=== PATIENT | male | born 1950 | race Hispanic/Latino ===

== ENCOUNTER 2018-03-27 18:27 | Emergency (ER) | payer OTHER ==
[2018-03-27 19:40] LABS: Absolute Lymphocytes (CBC) 0.7 K/uL (0.7-4.9); Absolute Monocytes 0.7 K/uL (0.1-1.3); Absolute Neutrophil 8.9 K/uL (1.8-8.0); Basophils % 0.4 % (0-1.3); Hematocrit 47.6 % (39.6-49.0); MCH 30.7 pg (27.0-35.0); MCV 89.3 fL (80-100); MPV 9.1 fL (7.6-11.3); Monocytes % 6.7 % (3.3-12.3); RBC Red Blood Cell Count 5.34 M/uL (4.33-5.43)
[2018-03-27] MEDS ORDERED: NA CHLORIDE 0.9% 1,000 ML ONE (19:44)
[2018-03-27] MEDS ORDERED: KETOROLAC 30 MG/ML INJ ONE (19:44)
[2018-03-27] MEDS ORDERED: ONDANSETRON 4 MG/2 ML VIAL ONE (19:44)
[2018-03-27 19:56] LABS: Albumin 3.5 g/dL (3.4-5.0); Bilirubin Direct 0.6 mg/dL (0-0.2); Bilirubin Total 1.5 mg/dL (0.2-1.0); Potassium 3.5 mmol/L (3.5-5.1); Protein, Total 7.3 g/dL (6.4-8.2)
[2018-03-27] MEDS ORDERED: ACETAMINOPHEN 500 MG TAB ONE (20:11)
--- NOTE | 2018-03-27 20:51 | RAD REPORT ---
EXAM DESCRIPTION: Stephanie Miller (2 Views)03/27/2018 7:51 pm CLINICAL HISTORY: Cough COMPARISON: None FINDINGS: The lungs appear clear of acute infiltrate. The heart is normal size IMPRESSION: No acute abnormalities displayed
[2018-03-27 21:36] LABS: Urine White Blood Cell Casts OK
[2018-03-27 21:37] LABS: Blood Morphology Comment NOT SEEN (NOT SEEN); Platelet Estimate DECR
--- NOTE | 2018-03-27 21:52 | ER ---
Nurse's Notes [facility] Name: Jeancarlos Tyler Age: 67 yrs Sex: Male : 1950 Arrival Date: 03/27/2018 Time: 18:32 Bed 25 Private MD: out of town, doctor Diagnosis: Abnormal results of liver function studies;Gastritis and duodenitis Presentation: 03/27 18:50 Presenting complaint: Patient states: Today at lunch he started feel bad, have chills. aj1 Denies cough. Reports he threw up yesterday but has not thrown up since. Denies pain. Denies nasal congestion. Denies urinary symptoms. Transition of care: patient was not received from another setting of care. Onset of symptoms was March 27, 2018 at 12:00. Risk Assessment: Do you want to hurt yourself or someone else? Patient reports no desire to harm self or others. Initial Sepsis Screen: Does the patient meet any 2 criteria? Temp <36.0*C (96.8*F)) or > 38.3*C (100.9*F). HR > 90 bpm. Does the patient have a suspected source of infection? No. Patient's initial sepsis screen is negative. Care prior to arrival: None. 18:50 Method Of Arrival: Ambulatory aj1 18:50 Acuity: RANDOLPH 2 aj1 Triage Assessment: 18:55 General: Appears in no apparent distress. uncomfortable, Behavior is calm, cooperative, aj1 appropriate for age. Pain: Denies pain. EENT: Denies nasal congestion, nasal discharge. Neuro: Level of Consciousness is awake, alert, obeys commands. Cardiovascular: Denies chest pain. Respiratory: Airway is patent Respiratory effort is even, unlabored, Respiratory pattern is regular, symmetrical, Denies shortness of breath. Historical: - Allergies: 18:55 No Known Allergies; aj1 - Home Meds: 18:55 None [Active]; aj1 - PMHx: 18:55 None; aj1 - PSHx: 18:55 None; aj1 - Immunization history:: Flu vaccine is not up to date. - Social history:: Smoking status: Patient/guardian denies using tobacco, Patient/guardian denies using alcohol, street drugs, The patient lives with family. - Ebola Screening: : Patient denies travel to an Ebola-affected area in the 21 days before illness onset. - Family history:: not pertinent. Screenin:50 Abuse screen: Denies threats or abuse. Denies injuries from another. Nutritional rv screening: No deficits noted. Tuberculosis screening: No symptoms or risk factors identified. Fall Risk None identified. Assessment: 19:49 General: Appears in no apparent distress. comfortable, Behavior is calm, cooperative. rv Pain: Denies pain. Neuro: Level of Consciousness is awake, alert, obeys commands, Oriented to person, place, time, situation. Cardiovascular: Capillary refill < 3 seconds. Respiratory: Airway is patent. GI: No signs and/or symptoms were reported involving the gastrointestinal system. : No signs and/or symptoms were reported regarding the genitourinary system. EENT: No signs and/or symptoms were reported regarding the EENT system. Derm: Skin is intact. Musculoskeletal: No signs and/or symptoms reported regarding the musculoskeletal system. 20:20 Reassessment: Patient appears in no apparent distress at this time. rv Vital Signs: 18:55 BP 161 / 71; Pulse 129; Resp 22; Temp 103.4; Pulse Ox 95% on R/A; Weight 78.02 kg (R); aj1 Height 5 ft. 5 in. (165.10 cm) (R); Pain 0/10; 20:16 BP 121 / 67; Pulse 106; Resp 14; Temp 102.6; Pulse Ox 95% ; rv 21:09 BP 117 / 66; Pulse 92 MON; Resp 17 S; Temp 99.1(O); Pulse Ox 95% on R/A; rv 21:54 BP 118 / 65 RA; Pulse 87 MON; Resp 16 S; Pulse Ox 96% on R/A; rv 18:55 Body Mass Index 28.62 (78.02 kg, 165.10 cm) aj1 ED Course: 18:32 Patient arrived in ED. sb2 18:33 out of town, doctor is Private Physician. sb2 18:55 Triage completed. aj1 18:55 Arm band placed on Patient placed in an exam room. aj1 19:08 Albino Rojo MD is Attending Physician. ma2 19:30 Initial lab(s) drawn, by me, sent to lab. Flu and/or RSV swab sent to lab. Inserted rv saline lock: 20 gauge in left antecubital area, using aseptic technique. Blood collected. 19:48 Chest Pa And Lat (2 Views) XRAY Sent. rv 19:49 Chest Pa And Lat (2 Views) XRAY In Process Unspecified. EDMS 19:49 Influenza Screen (a \T\ B) Sent. rv 19:49 Basic Metabolic Panel Sent. rv 19:49 CBC with Diff Sent. rv 19:49 Creatinine for Radiology Sent. rv 19:49 Hepatic Function Sent. rv 19:49 Lipase Sent. rv 19:50 Patient has correct armband on for positive identification. Placed in gown. Bed in low rv position. Call light in reach. Side rails up X 1. Adult w/ patient. bus monitor on. Pulse ox on. NIBP on. 21:54 No provider procedures requiring assistance completed. IV discontinued, bleeding rv controlled, No redness/swelling at site. Pressure dressing applied. Administered Medications: 19:30 Drug: NS 0.9% 1000 ml Route: IV; Rate: 1 bolus; Site: left antecubital; rv 21:28 Follow up: IV Status: Completed infusion rv 19:30 Drug: TORadol 30 mg Route: IVP; Site: left antecubital; rv 21:28 Follow up: Response: Pain is decreased rv 19:30 Drug: Zofran 4 mg Route: IVP; Site: left antecubital; rv 21:28 Follow up: Response: Nausea is decreased rv 20:03 Drug: Tylenol 1000 mg Route: PO; rv 21:27 Follow up: Response: Temperature is decreased rv Outcome: 21:51 Discharge ordered by . ma2 21:55 Discharged to home ambulatory. rv 21:55 Condition: good 22:06 Discharge instructions given to patient, Instructed on discharge instructions, follow rv up and referral plans. medication usage, Demonstrated understanding of instructions, follow-up care, medications, Prescriptions given X 2. 22:06 Patient left the ED. rv Signatures: Dispatcher [employer] KIRAMS Andria Kirby, RN RN preeti1 Albino Rojo MD MD ma2 Leda Horta sb2 Antelmo Vela RN RN rv
--- NOTE | 2018-03-27 21:52 | EDPHYS ---
Physician Documentation [facility] Name: Jeancarlos Tyler Age: 67 yrs Sex: Male : 1950 Arrival Date: 03/27/2018 Time: 18:32 Bed 25 Private MD: out of town, doctor ED Physician Albino Rojo HPI: 03/27 19:16 This 67 yrs old Male presents to ER via Ambulatory with complaints of Flu ma2 Symptoms. 19:16 The patient presents to the emergency department with nausea, vomiting. Possible ma2 causes: unknown. Associated signs and symptoms: Pertinent positives: fever, Pertinent negatives: abdominal pain, dysuria, hematuria, nausea, vomiting. Severity of symptoms: At their worst the symptoms were moderate in the emergency department the symptoms are unchanged. The patient has experienced similar episodes in the past. 19:16 Onset: The symptoms/episode began/occurred gradually, 1 day(s) ago. ma2 Historical: - Allergies: 18:55 No Known Allergies; aj1 - Home Meds: 18:55 None [Active]; aj1 - PMHx: 18:55 None; aj1 - PSHx: 18:55 None; aj1 - Immunization history:: Flu vaccine is not up to date. - Social history:: Smoking status: Patient/guardian denies using tobacco, Patient/guardian denies using alcohol, street drugs, The patient lives with family. - Ebola Screening: : Patient denies travel to an Ebola-affected area in the 21 days before illness onset. - Family history:: not pertinent. ROS: 19:16 Eyes: Negative for injury, pain, redness, and discharge, Cardiovascular: Negative for ma2 chest pain, palpitations, and edema, Respiratory: Negative for shortness of breath, cough, wheezing, and pleuritic chest pain, Abdomen/GI: Negative for abdominal pain, nausea, diarrhea, and constipation. 19:16 Constitutional: Positive for chills, fever, Negative for body aches, fatigue, poor PO intake, weight loss. 19:16 All other systems are negative. Exam: 19:16 Constitutional: This is a well developed, well nourished patient who is awake, alert, ma2 and in no acute distress. Neck: Trachea midline, no thyromegaly or masses palpated, and no cervical lymphadenopathy. Supple, full range of motion without nuchal rigidity, or vertebral point tenderness. No Meningismus. Chest/axilla: Normal chest wall appearance and motion. Nontender with no deformity. No lesions are appreciated. 19:16 Respiratory: Lungs have equal breath sounds bilaterally, clear to auscultation and percussion. No rales, rhonchi or wheezes noted. No increased work of breathing, no retractions or nasal flaring. Abdomen/GI: Soft, non-tender, with normal bowel sounds. No distension or tympany. No guarding or rebound. No evidence of tenderness throughout. Back: No spinal tenderness. No costovertebral tenderness. Full range of motion. Skin: Warm, dry with normal turgor. Normal color with no rashes, no lesions, and no evidence of cellulitis. MS/ Extremity: Pulses equal, no cyanosis. Neurovascular intact. Full, normal range of motion. Neuro: Awake and alert, GCS 15, oriented to person, place, time, and situation. Cranial nerves II-XII grossly intact. Motor strength 5/5 in all extremities. Sensory grossly intact. Cerebellar exam normal. Normal gait. 19:16 Cardiovascular: Rate: tachycardic. Vital Signs: 18:55 BP 161 / 71; Pulse 129; Resp 22; Temp 103.4; Pulse Ox 95% on R/A; Weight 78.02 kg (R); aj1 Height 5 ft. 5 in. (165.10 cm) (R); Pain 0/10; 20:16 BP 121 / 67; Pulse 106; Resp 14; Temp 102.6; Pulse Ox 95% ; rv 21:09 BP 117 / 66; Pulse 92 MON; Resp 17 S; Temp 99.1(O); Pulse Ox 95% on R/A; rv 21:54 BP 118 / 65 RA; Pulse 87 MON; Resp 16 S; Pulse Ox 96% on R/A; rv 18:55 Body Mass Index 28.62 (78.02 kg, 165.10 cm) aj1 MDM: 19:08 Patient medically screened. ma2 19:16 Differential diagnosis: gastritis, pancreatitis, appendicitis, viral gastroenteritis, ma2 gastroenteritis. 21:50 Data reviewed: vital signs, nurses notes, radiologic studies. Counseling: I had a ma2 detailed discussion with the patient and/or guardian regarding: the historical points, exam findings, and any diagnostic results supporting the discharge/admit diagnosis, the presence of at least one elevated blood pressure reading (>120/80) during this emergency department visit, lab results, radiology results, the need for outpatient follow up. Response to treatment: the patient's symptoms have mildly improved after treatment. 03/27 19:11 Order name: Basic Metabolic Panel; Complete Time: 21:49 ma2 03/27 19:11 Order name: CBC with Diff; Complete Time: 21:49 ma2 03/27 19:11 Order name: Creatinine for Radiology; Complete Time: 21:49 ma2 03/27 19:11 Order name: Hepatic Function; Complete Time: 21:49 ma2 03/27 19:11 Order name: Lipase; Complete Time: 21:49 ma2 03/27 19:11 Order name: Influenza Screen (a \T\ B) [facility] 03/27 19:11 Order name: IV Saline Lock; Complete Time: 19:49 ma2 03/27 19:11 Order name: Labs collected and sent; Complete Time: 19:49 ma2 03/27 19:11 Order name: Chest Pa And Lat (2 Views) XRAY; Complete Time: 21:49 ma2 03/27 19:53 Order name: CBC Smear Scan; Complete Time: 21:49 EDMS Administered Medications: 19:30 Drug: NS 0.9% 1000 ml Route: IV; Rate: 1 bolus; Site: left antecubital; rv 21:28 Follow up: IV Status: Completed infusion rv 19:30 Drug: TORadol 30 mg Route: IVP; Site: left antecubital; rv 21:28 Follow up: Response: Pain is decreased rv 19:30 Drug: Zofran 4 mg Route: IVP; Site: left antecubital; rv 21:28 Follow up: Response: Nausea is decreased rv 20:03 Drug: Tylenol 1000 mg Route: PO; rv 21:27 Follow up: Response: Temperature is decreased rv Disposition: 03/27/18 21:51 Discharged to Home. Impression: Abnormal results of liver function studies, Gastritis and duodenitis. - Condition is Stable. - Prescriptions for Augmentin 875- 125 mg Oral Tablet - take 1 tablet by ORAL route every 12 hours for 10 days; 20 tablet. Zofran 4 mg Oral Tablet - take 1 tablet by ORAL route every 12 hours As needed; 20 tablet. - Medication Reconciliation Form, Thank You Letter, Antibiotic Education, Prescription Opioid Use form. - Follow up: Private Physician; When: Tomorrow; Reason: Continuance of care. - Problem is new. - Symptoms are unchanged. Signatures: Dispatcher [employer] Andria Duffy RN RN aj1 Albino Rojo MD MD ma2 Antelmo Vela RN RN rv Corrections: (The following items were deleted from the chart) 22:06 21:51 03/27/2018 21:51 Discharged to Home. Impression: Abnormal results of liver rv function studies; Gastritis and duodenitis. Condition is Stable. Forms are Medication Reconciliation Form, Thank You Letter, Antibiotic Education, Prescription Opioid Use. Follow up: Private Physician; When: Tomorrow; Reason: Continuance of care. Problem is new. Symptoms are unchanged. ma2
== END 2018-03-27 22:06 | disposition home or self-care (01) ==
LOC: ER 18:27
DX: K29.70 Gastritis, unspecified, without bleeding (principal); K29.80 Duodenitis without bleeding; R94.5 Abnormal results of liver function studies
CPT/HCPCS: 36415; 71046; 80048; 80076; 83690; 85025; 87804 ×2; 96361; 96374; 96375; 99284; J2405; J7030